=== PATIENT | female | born 1995 | race American Indian/Alaskan Native ===

== ENCOUNTER 2016-11-03 15:30 | Outpatient (CLI) | payer MEDICAID ==
[2016-11-03 15:57] VITALS: BP 117/68
[2016-11-03] MEDS ORDERED: LACTATED RINGERS 500 ML IV ONE (17:10)
[2016-11-03 17:44] LABS: Bilirubin,Urine NEG (Negative); Blood,Urine NEG (Negative); Ketones,Urine 80 mg/dL (Negative); Leukocyte Esterase,Urine MOD (Negative); Mucus,Urine 2+ /HPF; Nitrite,Urine NEG (Negative); Protein,Urine <15 mg/dL mg/dL (Negative); Urobilinogen,Urine < 2.0 mg/dL (<2.0)
== END 2016-11-03 18:39 | disposition home or self-care (01) ==
LOC: TRG 15:30
PROVIDERS: ATTEND Obstetrics & Gynecology
DX: Z34.92 Encounter for supervision of normal pregnancy, unspecified, second trimester (principal); Z3A.24 24 weeks gestation of pregnancy
CPT/HCPCS: 59025; 81001

== ENCOUNTER 2017-02-22 09:58 | Inpatient (IN) | payer MEDICAID ==
--- NOTE | 2017-02-21 13:59 | History and Physical Report ---
History of Present Illness Date of examination: 02/21/17 Date of admission: 02/22/17 Chief complaint: with SIUP at 39 weeks and 1 day not in labor.\ Previous C/section Declined History of present illness: The patient is a 21-year-old female [id number]: EDC 02/28/17 who is at 39 weeks and 1 day gestation confirmed by a second trimester ultrasound, admitted for elective repeat section. The patient was a late registrant to care at 25 weeks. She denies any contractions, fluid leakage, or bleeding. She reports good movement. Past medical history: Asthma. Past surgical history: section 1 Allergies: no known drug allergies Family history: Type 2 diabetes, Hypertension, Sleep apnea. Medications: vitamins Social history: no smoking or alcohol abuse. JOURNEYMAN GLAZIER history: unremarkable. Obstetric history: 10/2013- for breech, full term, male, 9 lbs. 5 oz. No complications. chart review: Type and screen: A positive, RPR: NR, Rubella: immune. Hepatitis B surface antigen negative, GBS positive. Physical exam: General: no active distress. Vital signs stable. Neck HEENT: normal. Chest clear to auscultation B/L. Neuro: AAO x 3 Abdomen: is soft nontender. Uterus gravid. Fundal height 39 cm. FHT 140 BPM. No decelerations. Vaginal exam: cervix closed/long/posterior. Extremities: no edema, tenderness, no Homans sign. Pre-op labs: pending. Assessment 1. 21 years old at 39 weeks and 1 day gestation not in labor. 2. previous section. 3. Refused . Plans 1. Admit to labor and delivery for repeat section. Risks, benefits, and alternatives of the procedure were discussed in detail with the patient which included but not limited to the risks of infection, hemorrhage requiring blood transfusion, injury to the bowel, bladder, and blood vessels. The patient expressed understanding, her questions were answered, and she gave informed consent. 2. FHT and toco monitoring. Nothing by mouth, IV fluids. 3. Admitting labs sent. Patient is specimen accessioner to the OR. Past History Past Medical History: asthma Past Surgical History: section JOURNEYMAN GLAZIER History: abnormal PAP smear Social history: no significant social history - Obstetrical History Expected Date of Delivery: 02/28/17 Actual Gestation: 39 Week(s) 0 Day(s) : 2 Para: 1 Hx # Term Pregnancies: 1 Medications and Allergies Allergies Allergy/AdvReac Type Severity Reaction Status Date / Time ondansetron HCl Allergy Rash Unverified 11/03/16 15:31 [From Zofran (as hydrochloride)] Active Meds: Active Medications Cefazolin Sodium 2 gm/ Sodium (Chloride) 100 mls @ 200 mls/hr IV ONCE ONE PRN Reason: Protocol Stop: 02/21/17 14:10 Lactated Ringer's (Lactated Ringers) 1,000 mls @ 125 mls/hr IV DIRECT MOIZ Mineral Oil (Mineral Oil) 30 ml PO QHS PRN PRN Reason: Constipation - Physical Exam Cardiovascular: Normal S1, Normal S2, No murmurs Lungs: Positive: Clear to auscultation Vulva: both: normal Uterus: Positive: normal size, enlarged Adnexa: both: normal Results All other labs normal. Assessment and Plan - Patient Problems (1) with 39 completed weeks gestation Status: Acute Plan to address problem: Admit to Labor and Delivery (2) Previous delivery affecting , antepartum Status: Acute Plan to address problem: Counseling for repeat C/section. Risks, benefits were discussed with the patient. Informed consent obtained.
[~2017-02-22 09:58] MED LIST: ANCEF/STERILE WATER 2 GM/20 ML 2 GM/20 ML SYRINGE IV SCH; MINERAL OIL PO PRN
[2017-02-22] MEDS: LACTATED RINGERS 1,000 ML IV SCH ×3 (10:30→20:13)
--- NOTE | 2017-02-22 10:50 | Anesthesia Consultation ---
Anesthesia Consult and Med Hx Date of service: 02/22/17 - Airway Anesthetic Teeth Evaluation: Good ROM Head & Neck: Adequate Mental/Hyoid Distance: Adequate Mallampati Class: Class II Intubation Access Assessment: Probably Good - Pre-Operative Health Status ASA Pre-Surgery Classification: ASA3 Proposed Anesthetic Plan: Epidural, Spinal - Pulmonary Hx Asthma: Yes (last unsed inhaler 1 week ago) - Cardiovascular System Hx Hypertension: No - Central Nervous System Hx Seizures: No Hx Psychiatric Problems: No - Endocrine Hx Renal Disease: No Hx Hypothyroidism: No Hx Hyperthyroidism: No - Hematic Hx Anemia: No Hx Sickle Cell Disease: No - Other Systems Hx Alcohol Use: No
--- NOTE | 2017-02-22 10:51 | Anesthesia Day of Surgery ---
Anesthesia Day of Surgery - Day of Surgery Patient Examined: Yes Patient H&P Reviewed: Yes Patient is NPO: No (had 10oz of [facility])
[2017-02-22] MEDS ORDERED: TORADOL IV PRN (10:52)
[2017-02-22] MEDS ORDERED: NARCAN 0.4 MG/1 ML IV PRN ×2 (10:52→13:47)
[2017-02-22] MEDS ORDERED: DILAUDID IV PRN (10:52)
[2017-02-22] MEDS ORDERED: REGLAN IV NR (11:00)
[2017-02-22] MEDS ORDERED: SODIUM CHLORIDE FLUSH SYRINGE 10 ML IV SCH ×2 (11:00→14:00)
[2017-02-22 11:01] LABS: Basophils % (Auto) 0.4 % (0.0-1.8); Eosinophils % (Auto) 0.7 % (0.0-4.3); Hematocrit 35.7 % (30.3-42.9); Hemoglobin 11.9 gm/dl (10.1-14.3); Mean Corpuscular HGB Conc 33 % (30-34); Mean Corpuscular Hemoglobin 30 pg (28-32); Mean Corpuscular Volume 90 fl (79-97); Platelet Count 213 K/mm3 (140-440); Red Blood Count 3.98 M/mm3 (3.65-5.03); Red Cell Distribution Width 13.3 % (13.2-15.2); White Blood Count 9.1 K/mm3 (4.5-11.0)
[2017-02-22] MEDS ORDERED: PITOCin/NS 20 UNIT/1000ML DRIP 20,000 MILLIUNITS/1,000 ML BAG IV ONE (11:17)
[2017-02-22] MEDS ORDERED: PEPCID IV ONE (12:00)
[2017-02-22] MEDS ORDERED: MORPHINE ONE (12:14)
[2017-02-22] MEDS ORDERED: BICITRA PO ONE (12:15)
[2017-02-22] MEDS ORDERED: ANCEF/STERILE WATER 2 GM/20 ML IV ONE (12:18)
[2017-02-22] MEDS ORDERED: WATER FOR IRRIG STERILE IR ONE (12:30)
[2017-02-22] MEDS ORDERED: NACL 0.9% IR ONE (12:30)
[2017-02-22] MEDS ORDERED: DILAUDID ONE (13:27)
[2017-02-22] MEDS ORDERED: NACL 0.9% 1000 ML 1,000 ML ONE (13:32)
[2017-02-22] MEDS ORDERED: MORPHINE IV PRN (13:47)
[2017-02-22] MEDS ORDERED: TUCKS PAD TP PRN (13:47)
[2017-02-22] MEDS ORDERED: PHENERGAN PR PRN (13:47)
[2017-02-22] MEDS ORDERED: TYLENOL PR PRN (13:47)
[2017-02-22] MEDS ORDERED: LANSINOH TP PRN (13:47)
[2017-02-22] MEDS ORDERED: REGLAN IV PRN (13:51)
--- NOTE | 2017-02-22 13:53 | Procedure Note ---
OB Delivery Note - Section Postop diagnosis: same section procedure: repeat low transverse Disposition: PACU Complications: none
--- NOTE | 2017-02-22 13:54 | Operative Report ---
Operative Report Operative Report: Pre-Operative diagnosis: 1. SIUP at 39 weeks and 1 day not in labor . 2. Previous section. 3. Refused . Postoperative diagnosis: 1. Same as pre-op diagnosis. 2. Dense omental adhesions to the anterior abdominal wall and uterus. Procedure: Repeat LTCS Surgeon: Dr. Quispe. Art Specialist: none Anesthesia: spinal Complications: none IV fluid: RL 1600 mL Urine output: 300 mL EBL: 700 mL Intraoperative findings: 1. Dense adhesions of the omentum to the anterior uterine segment and abdominal wall. 2. Female infant found in an NANCY position, delivered at 1 PM, Apgars 8 at 1 minute 9 at 5 minutes, weight 7 lbs. 15 oz. Procedure details: The risks, benefits, and alternatives of the procedure were discussed in detail with the patient which included but not limited to the risks of infection, hemorrhage requiring blood transfusion, injury to bowel bladder and blood vessels. The patient expressed understanding, her questions were answered, and she gave informed consent. The patient was taken to the operating room with an IV fluid infusing Ringer's lactate. In the operating room, she was placed in a sitting position and given spinal anesthesia. She was then placed in the dorsal supine position with a leftward tilt. Beatty catheter was placed. Venodyne boots were placed. The abdomen was washed and she was prepared and draped in the usual sterile fashion. After confirming adequate spinal anesthesia, a Pfannenstiel skin incision was made in the lower abdomen using the scalpel at the level of the previous scar. This incision was carried down to the underlying fascia using the Bovie. The fascia was incised bilaterally in a curvilinear fashion using the Bovie. Two straight Kocker clamps were used to grasp the upper edge of the fascia from which the underlying rectus abdominis muscle was dissected off using the Bovie. A similar procedure was done with the lower edge of the fascia to dissect the underlying rectus abdominis muscle. The muscle was bluntly from the midline by pulling. There was dense adhesions of the omentum to the anterior abdominal wall and the anterior uterine segment. Lysis of adhesions was done. A quick survey of the anatomy revealed a gravid uterus, normal ovaries and Fallopian tubes bilaterally. A bladder flap was created. On Dion O retractor was placed at the incision. An incision was made in the lower uterine segment using the scalpel and extended bilaterally in a curvilinear fashion using bandage scissors. The amniotic sac was ruptured, there was copious amount of meconium-stained amniotic fluid. The infant was found in an NANCY position. The head was delivered atraumatically followed by the delivery of the shoulders and body atraumatically. The was a female delivered at 1 PM. The cord was clamped 2 and cut , the was handed off to waiting home health specialist. Apgars were 8 at 1 minutes and 9 at 5 minutes Cord blood was collected. The placenta was removed manually, it was complete with three-vessel cord. The uterine cavity was clean of clots and debris using dry lap sponges. The uterine incision was repaired in a running locked fashion using 0 Vicryl sutures. A second layer of imbrication was placed. The gutters were cleaned of clots and debris using using dry lap sponges. The rectus muscle also was reapproximated using interrupted sutures of 0 Vicryl. The fascia was closed in a running fashion using 0 Vicryl sutures. The counts of laps, sponges, and instruments were correct 2. The patient tolerated the procedure well. She was taken to the recovery room in a stable condition.
[2017-02-22] MEDS ORDERED: PITOCin/NS 20 UNIT/1000ML DRIP 20 UNITS/1,000 ML BAG IV SCH (14:00)
[2017-02-22] MEDS: BENADRYL IV PRN ×2 (15:55→20:15)
[2017-02-23 02:16] LABS: Hematocrit 30.1 % (30.3-42.9); Hemoglobin 10.3 gm/dl (10.1-14.3)
[2017-02-23] MEDS: MOTRIN PO PRN ×2 (05:54→17:53)
--- NOTE | 2017-02-23 10:57 | Progress Note ---
Subjective Date of service: 02/23/17 Interval history: 1st POD after Patient is in the bed, comfortable. Pain is well controlled with pain meds. Ambulated well. No residual neurological deficit. Pruritus is receding. No anesthesia complications Objective - Constitutional Vitals: Vital Signs - 12hr 02/23/17 02/23/17 02/23/17 00:40 05:17 08:25 Temperature 99.2 F 98.9 F 98.5 F Pulse Rate 90 99 H 80 Respiratory 20 20 20 Rate Blood Pressure 101/55 108/53 98/50 [Left] - Labs CBC & Chem 7: 02/23/17 01:47 Labs: Abnormal lab results 02/22/17 02/23/17 Range/Units 10:45 01:47 Hct 30.1 L (30.3-42.9) % Merrick % (Auto) 9.2 H (0.0-7.3) %
[2017-02-23] MEDS ORDERED: BENADRYL PO PRN (11:00)
[2017-02-23] MEDS: PERCOCET 5/325 PO PRN ×3 (11:21→21:56)
--- NOTE | 2017-02-23 11:40 | Progress Note ---
Assessment and Plan A: POD #1 Stable P: Follow routine PostOp Orders Subjective - Subjective Date of service: 02/23/17 Patient reports: appetite normal, voiding normally, pain well controlled, flatus , ambulating normally : doing well, bottle feeding Objective - Vital Signs Latest vital signs: Vital Signs Temp Pulse Resp BP BP Pulse Ox 02/23/17 08:25 98.5 F 80 20 98/50 02/23/17 05:17 98.9 F 99 H 20 108/53 02/23/17 00:40 99.2 F 90 20 101/55 02/22/17 20:40 98.1 F 79 20 100/61 02/22/17 16:00 98.4 F 71 18 108/70 02/22/17 15:05 117/54 02/22/17 15:00 119/51 02/22/17 14:55 74 12 109/60 99 02/22/17 14:50 65 13 115/60 98 02/22/17 14:45 69 13 114/58 98 02/22/17 14:40 90 14 132/67 99 02/22/17 14:35 68 14 117/58 99 02/22/17 14:30 74 14 118/59 99 02/22/17 14:25 71 14 127/58 97 02/22/17 14:20 73 14 120/60 96 02/22/17 14:15 88 12 122/60 99 02/22/17 14:10 95 H 17 116/78 99 02/22/17 14:06 79 16 113/56 98 02/22/17 14:00 99 02/22/17 13:59 99 02/22/17 13:57 97.8 F Intake and Output 02/22/17 02/23/17 02/23/17 22:59 06:59 14:59 Intake Total 1120 360 120 Output Total 100 800 Balance 1020 -440 120 Intake: IV 1000 Lactated Ringers 1,000 ml 1000 @ 125 mls/hr IV DIRECT MOIZ Rx#:[id number] Oral 120 120 120 Intake, Free Water 240 Output: Urine 100 800 Indwelling Catheter 100 800 Other: Total, Intake Amount 120 120 Total, Output Amount 100 800 # Voids Void 1 - Exam Breasts: Present: normal Cardiovascular: Present: Regular rate Lungs: Present: Clear to auscultation, Normal air movement Abdomen: Present: normal appearance, soft, normal bowel sounds Uterus: Present: normal, firm, fundal height below umbilicus Extremities: Present: normal Incision: Present: normal, dry, dressed - Labs Labs: Abnormal lab results 02/23/17 Range/Units 01:47 Hct 30.1 L (30.3-42.9) %
[2017-02-24] MEDS: MOTRIN PO PRN ×2 (01:01→09:14)
[2017-02-24] MEDS: PERCOCET 5/325 PO PRN ×2 (05:30→09:14)
[2017-02-24] MEDS ORDERED: DEPO-PROVERA (CONTRACEPTION) IM ONE ×2 (06:07→13:00)
--- NOTE | 2017-02-24 06:09 | Progress Note ---
Assessment and Plan A: POD #2 Stable P: Follow Routine PostOp Orders Depo Provera prior to discharge D/C Home today per patient request RTO in one week Subjective - Subjective Date of service: 02/24/17 Patient reports: appetite normal, voiding normally, pain well controlled, flatus , bowel movement, ambulating normally Stringer: doing well, bottle feeding Objective - Vital Signs Latest vital signs: Vital Signs Temp Pulse Resp BP BP 02/24/17 05:30 18 02/24/17 01:01 18 02/24/17 00:00 98 F 90 20 102/59 02/23/17 21:56 18 02/23/17 16:58 99.1 F 86 22 80/40 90/40 02/23/17 11:43 99.4 F 84 20 100/50 02/23/17 08:25 98.5 F 80 20 98/50 Intake and Output 02/23/17 02/23/17 02/24/17 14:59 22:59 06:59 Intake Total 360 600 240 Balance 360 600 240 Intake: Oral 360 240 Intake, Free Water 360 240 Other: Total, Intake Amount 240 Voiding Method Toilet # Voids 1 Indwelling Catheter 1 Void 2 1 - Exam Breasts: Present: normal Cardiovascular: Present: Regular rate Lungs: Present: Clear to auscultation, Normal air movement Abdomen: Present: normal appearance, soft, normal bowel sounds Uterus: Present: normal, firm, fundal height below umbilicus Extremities: Present: normal Incision: Present: normal, dry, intact
--- NOTE | 2017-02-24 06:11 | Discharge Summary ---
Providers - Providers Date of Admission: 02/22/17 09:58 Date of discharge: 02/24/17 Attending physician: BABITA ROMAN MD Primary care physician: BABITA ROMAN MD Hospitalization Reason for admission: section Delivery: Procedure: section Episiotomy: none Laceration: none Incision: normal, dry, intact Other procedures: none complications: none Discharge diagnosis: IUP at term delivered baby: female Condition at discharge: Good Disposition: DC-01 TO HOME OR SELFCARE Plan - Provider Discharge Summary Activity: routine, no sex for 6 weeks, no heavy lifting 4 weeks, no strenuous exercise Diet: routine Instructions: routine Additional instructions: [] Smoking cessation referral if applicable(refer to patient education folder for contact #) [] Refer to [facility] Booklet Call your doctor immediately for: * Fever > 100.5 * Heavy vaginal bleeding ( >1 pad per hour) * Severe persistent headache * Shortness of breath * Reddened, hot, painful area to leg or breast * Drainage or odor from incision. * Keep incision clean and dry at all times and follow doctor's instructions regarding bathing/showering - Follow up plan Follow up: BABITA ROMAN MD [Primary Care Provider] - 7 Days
[2017-02-24 13:37] VITALS: BP 110/72
== END 2017-02-24 12:45 | disposition home or self-care (01) | DRG 765 ==
LOC: APU 09:58 → OB 15:16
PROVIDERS: ADMIT Obstetrics & Gynecology; ATTEND Obstetrics & Gynecology
PROC: 10D00Z1 Extraction of Products of Conception, Low, Open Approach (ICD-10-PCS; principal; 2017-02-22)
PROC: 0DNU0ZZ Release Omentum, Open Approach (ICD-10-PCS; 2017-02-22)
PROC: 0DNW0ZZ Release Peritoneum, Open Approach (ICD-10-PCS; 2017-02-22)
DX: O34.211 Maternal care for low transverse scar from previous cesarean delivery (principal); Z68.41 Body mass index [BMI] 40.0-44.9, adult; E66.01 Morbid (severe) obesity due to excess calories; O99.214 Obesity complicating childbirth; O99.52 Diseases of the respiratory system complicating childbirth; J45.909 Unspecified asthma, uncomplicated; O99.824 Streptococcus B carrier state complicating childbirth; O99.89 Other specified diseases and conditions complicating pregnancy, childbirth and the puerperium; N73.6 Female pelvic peritoneal adhesions (postinfective); Z83.3 Family history of diabetes mellitus; Z82.49 Family history of ischemic heart disease and other diseases of the circulatory system; Z3A.39 39 weeks gestation of pregnancy; Z37.0 Single live birth
CPT/HCPCS: 36415; 85014; 85018; 85025; 86850; 86900; 86901; 99211; A6250; G0463; J0690; J1050; J1170; J1200; J1885; J2270; J2590; J2765; J7030; J7120

== ENCOUNTER 2017-04-05 19:53 | Inpatient (IN) | payer MEDICAID ==
[2017-04-05 20:41] LABS: Basophils % (Auto) 0.7 % (0.0-1.8); Hemoglobin 12.2 gm/dl (10.1-14.3); Mean Corpuscular HGB Conc 33 % (30-34); Mean Corpuscular Hemoglobin 28 pg (28-32); Mean Corpuscular Volume 85 fl (79-97); Platelet Count 256 K/mm3 (140-440); Red Blood Count 4.37 M/mm3 (3.65-5.03); Red Cell Distribution Width 14.9 % (13.2-15.2)
[2017-04-06 04:01] LABS: Bilirubin,Urine NEG (Negative); Blood,Urine LG (Negative); Ketones,Urine TR mg/dL (Negative); Leukocyte Esterase,Urine TR (Negative); Nitrite,Urine NEG (Negative); Urobilinogen,Urine < 2.0 mg/dL (<2.0)
[2017-04-06 04:44] LABS: RBC,Urine > 182.0 /HPF (0.0-6.0); WBC,Urine > 182.0 /HPF (0.0-6.0)
--- NOTE | 2017-04-06 05:38 | Ultrasound Report ---
FINAL REPORT EXAM: US TRANSVAGINAL HISTORY: delivery 6 weeks ago, continued vag bleeding TECHNIQUE: Routine transvaginal imaging was obtained of the pelvis. Doppler interrogation of the adnexa was obtained. FINDINGS: The uterus is enlarged measuring 11 cm x 5 cm x 6.7 cm. There is an echogenic deformity along the anterior wall of the uterus extending from the endometrium to the serosal surface related to the incision. Contiguous with this along the anterior serosal surface is a mixed echogenic structure measuring 2.9 cm x 2.5 cm x 3.5 cm. This is most likely a soft tissue hematoma. The endometrial thickness otherwise is 15.6 millimeters. There is echogenic foci within the endometrium in the fundus possibly representing retained products of conception. Free fluid is not seen. The left ovary is normal in size contour and echotexture measuring 3.1 cm x 2.4 cm x 3 cm. The right ovary measures 3 cm x 2.2 cm x 2.7 cm. Within the right ovary is a functional cyst measuring 2.1 cm in diameter. IMPRESSION: Deformity along the anterior wall of the uterus related to the Caesarean incision. Probable hematoma along the serosal surface contiguous with the incision measuring to 3.5 cm in diameter as described. Follow-up study recommended. Echogenic foci within the fundus of the endometrium possibly representing retained products of conception. 2.1 cm functional cyst in the right ovary. No evidence of free fluid.
--- NOTE | 2017-04-06 05:42 | Ultrasound Report ---
FINAL REPORT EXAM: US PELVIC COMPLETE HISTORY: delivery 6 weeks ago, continued vag bleeding TECHNIQUE: Transabdominal imaging was obtained of the pelvis. Doppler interrogation of the uterus and adnexa was obtained. FINDINGS: The uterus is enlarged and anteverted measuring 11 cm x 5 cm x 6.7 cm. There is a myometrial deformity extending from the endometrium to the serosal surface compatible with the incision deformity anteriorly. Along the serosal surface is a heterogeneous focus measuring 3.5 cm x 2.9 cm x 2.5 cm most likely representing localized hematoma. The endometrial thickness otherwise is 15.6 millimeters. There is increased echogenicity of the endometrium in the fundus suggesting the possibility of retained products of conception. Free fluid is not seen. The left ovary is normal size contour and echotexture measuring 3.1 cm x 2.4 cm x 3 cm. The right ovary measures 3 cm x 2.2 cm x 2.7 cm. Within the right ovary is a functional cyst measuring 2.1 cm in diameter. IMPRESSION: incision deformity along the anterior wall the uterus with probable localized hematoma along the serosal surface as described. Follow-up study recommended. Echogenic foci in the fundic portion of the endometrium suggesting retained products of conception. 2.1 cm functional cyst in the right ovary.
[2017-04-06] MEDS ORDERED: NACL 0.9% 1000 ML 1,000 ML IV ONE (10:17)
[2017-04-06] MEDS ORDERED: MORPHINE IV ONE ×2 (10:17→14:21)
[2017-04-06] MEDS ORDERED: REGLAN IV ONE ×2 (10:18→17:43)
[2017-04-06] MEDS ORDERED: ROCEPHIN/NS 1 GM/50 ML 1 GM/50 ML BAG IV ONE (10:18)
--- NOTE | 2017-04-06 10:24 | Emergency Department Report ---
HPI - General Chief Complaint: Vaginal Bleeding - HPI HPI: Room 8 The patient is a 21-year-old female presenting with a chief complaint of vaginal bleeding. The patient states she is status post 02/22/[address] Quispe. The patient states since delivery she has had daily vaginal bleeding which includes significant blood clots. The patient states for the past 4 days she's had pain, paresthesias and weakness of her right upper extremity and right lower extremity. Patient admits to a slight "tingling" "while urinating. Patient complains of bilateral back pain. Patient complains of diffuse abdominal pain for the past 4 days. Patient states she has a headache but denies dysarthria or dysphagia. Patient denies any preceding trauma. The patient states she is not breast-feeding Location: [See above] Duration: [See above] Quality: Sharp Severity: Moderate Modifying factors: [see above] Context: [see above] Mode of transportation: [not driving] ED Past Medical Hx - Past Medical History Hx Asthma: Yes - Surgical History Additional Surgical History: C/S x 2 - Family History Family history: no significant - Social History Smoking Status: Never Smoker Substance Use Type: None (denies illicit drug use) - Medications Home Medications: Home Medications Medication Instructions Recorded Confirmed Last Taken Type ALBUTEROL Inhaler [Proair] 2 puff IH QID PRN 04/06/17 04/06/17 Unknown History Ibuprofen [Ibuprofen Ib] 800 mg PO DAILY 04/06/17 04/06/17 04/05/17 History ED Review of Systems ROS: Stated complaint: VAGINAL BLEEDING Other details as noted in HPI Constitutional: denies: fever Gastrointestinal: abdominal pain Genitourinary: dysuria, abnormal menses Musculoskeletal: back pain, myalgia Skin: denies: rash Neurological: weakness, paresthesias Physical Exam - Physical Exam Vital Signs: Vital Signs 04/05/17 04/05/17 04/06/17 19:55 19:58 03:22 Temperature 98.4 F Pulse Rate 130 H 128 H 111 H Respiratory 20 18 13 Rate Blood Pressure 122/73 Blood Pressure 122/73 [Right] O2 Sat by Pulse 99 99 100 Oximetry 04/06/17 04/06/17 04/06/17 03:30 03:46 03:55 Temperature Pulse Rate 110 H 117 H Respiratory 17 20 20 Rate Blood Pressure 109/65 129/77 Blood Pressure [Right] O2 Sat by Pulse 100 98 Oximetry 04/06/17 04/06/17 04/06/17 04:01 04:04 04:15 Temperature 98.9 F Pulse Rate 111 H 115 H Respiratory 18 22 Rate Blood Pressure 102/55 129/77 Blood Pressure [Right] O2 Sat by Pulse 99 Oximetry Physical Exam: GENERAL: The patient is well-developed well-nourished female lying on stretcher not appearing to be in acute distress. [] HEENT: Normocephalic. Atraumatic. Extraocular motions are intact. Patient has moist mucous membranes. NECK: Supple. No meningitic signs are noted. Trachea midline CHEST/LUNGS: Clear to auscultation. There is no respiratory distress noted. HEART/CARDIOVASCULAR: Regular. There is no tachycardia. There is no gallop rub or murmur. ABDOMEN: Abdomen is soft, with diffuse discomfort to palpation. surgical site clean dry and intact. Patient has normal bowel sounds. There is no abdominal distention. SKIN: There is no rash. There is no diaphoresis. The patient has no focal neurologic deficits. The patient has normal speech. Cranial nerves II through XII grossly intact, no drift. Normal sensation throughout. Bath Mixer 5+/5 bilaterally. Patient able to dorsiflex bilateral feet 5+/5 but an alert move her right lower extremity the patient states she still lift it with her arms MUSCULOSKELETAL: There is no deformity. ED Course Vital Signs 04/05/17 04/05/17 04/06/17 19:55 19:58 03:22 Temperature 98.4 F Pulse Rate 130 H 128 H 111 H Respiratory 20 18 13 Rate Blood Pressure 122/73 Blood Pressure 122/73 [Right] O2 Sat by Pulse 99 99 100 Oximetry 04/06/17 04/06/17 04/06/17 03:30 03:46 03:55 Temperature Pulse Rate 110 H 117 H Respiratory 17 20 20 Rate Blood Pressure 109/65 129/77 Blood Pressure [Right] O2 Sat by Pulse 100 98 Oximetry 04/06/17 04/06/17 04/06/17 04:01 04:04 04:15 Temperature 98.9 F Pulse Rate 111 H 115 H Respiratory 18 22 Rate Blood Pressure 102/55 129/77 Blood Pressure [Right] O2 Sat by Pulse 99 Oximetry - Consultations Consultation #1: 04/06/17 10:[address] Quispe- will evaluate in the ED ED Medical Decision Making - Lab Data Result diagrams: 04/05/17 20:14 Laboratory Tests 04/05/17 04/05/17 04/05/17 20:14 20:14 20:14 WBC 13.0 H RBC 4.37 Hgb 12.2 Hct 37.0 MCV 85 MCH 28 MCHC 33 RDW 14.9 Plt Count 256 Lymph % (Auto) 18.4 [place] % (Auto) 12.6 H Eos % (Auto) 0.0 Baso % (Auto) 0.7 Lymph # 2.4 [place] # 1.6 H Eos # 0.0 Baso # 0.1 Seg Neutrophils % 68.3 Seg Neutrophils # 8.9 H HCG, Qual Negative HCG, Quant < 2 Urine Color Urine Turbidity Urine pH Ur Specific [place] Urine Protein Urine Glucose (UA) Urine Ketones Urine Blood Urine Nitrite Urine Bilirubin Urine Urobilinogen Ur Leukocyte Esterase Urine WBC (Auto) Urine RBC (Auto) Urine WBC Clumps Blood Type Antibody Screen 04/05/17 04/06/17 20:17 04:04 WBC RBC Hgb Hct MCV MCH MCHC RDW Plt Count Lymph % (Auto) [place] % (Auto) Eos % (Auto) Baso % (Auto) Lymph # [place] # Eos # Baso # Seg Neutrophils % Seg Neutrophils # HCG, Qual HCG, Quant Urine Color [place] Urine Turbidity Clear Urine pH 5.0 Ur Specific [place] 1.017 Urine Protein 100 mg/dl Urine Glucose (UA) Neg Urine Ketones Tr Urine Blood Lg Urine Nitrite Neg Urine Bilirubin Neg Urine Urobilinogen < 2.0 Ur Leukocyte Esterase Tr Urine WBC (Auto) > 182.0 H Urine RBC (Auto) > 182.0 Urine WBC Clumps 3+ Blood Type A POSITIVE Antibody Screen Negative - EKG Data -: EKG Interpreted by [place] EKG shows normal: sinus rhythm Rate: tachycardia (108) - EKG Data When compared to previous EKG there are: previous EKG unavailable Interpretation: other (no ischemic changes seen) - Radiology Data Radiology results: report reviewed (right lower extremity Doppler, CT head, pelvic ultrasound), image reviewed (CT head, pelvic ultrasound) TALAT BOYD Female : 1995 MedRec# [id number] 04/06/17 11:03 - Radiology Dept. Note by HAYLEY ELLIOTT [facility] Num: [id number] : 1995 Patient Age: 21 VASCULAR LAB.PRELIMINARY REPORT.RLE VENOUS DUPLEX DONE.NO EVIDENCE OF DVT/SVT IN VESSELS VISUALIZED. Initialized on 04/06/17 11:03 - END OF NOTE CT HEAD WITHOUT CONTRAST INDICATION: Right upper extremity and right lower extremity pain, weakness, paresthesia. COMPARISON: None similar. FINDINGS: Noncontrast head CT demonstrates normal ventricles and sulci without acute or recent infarct, hemorrhage, mass effect or midline shift. No abnormal extra-axial fluid collections. Posterior fossa structures and basilar cisterns appear within normal limits. Clear paranasal sinuses and mastoid air cells. Intact calvarium. Normal overlying scalp soft tissues. Tiny radiopaque dental material incidentally noted. CONCLUSION: No acute intracranial CT abnormality, as described. Thank you for the opportunity to participate in this patient's care. Transcribed By: RS Dictated By: LJ JOHNSON MD Electronically Authenticated By: LJ JOHNSON MD Signed Date/Time: 04/06/17 1117 DD/ 1113 TD/TT: 04/06/17 1117 FINAL REPORT EXAM: US TRANSVAGINAL HISTORY: delivery 6 weeks ago, continued vag bleeding TECHNIQUE: Routine transvaginal imaging was obtained of the pelvis. Doppler interrogation of the adnexa was obtained. FINDINGS: The uterus is enlarged measuring 11 cm x 5 cm x 6.7 cm. There is an echogenic deformity along the anterior wall of the uterus extending from the endometrium to the serosal surface related to the incision. Contiguous with this along the anterior serosal surface is a mixed echogenic structure measuring 2.9 cm x 2.5 cm x 3.5 cm. This is most likely a soft tissue hematoma. The endometrial thickness otherwise is 15.6 millimeters. There is echogenic foci within the endometrium in the fundus possibly representing retained products of conception. Free fluid is not seen. The left ovary is normal in size contour and echotexture measuring 3.1 cm x 2.4 cm x 3 cm. The right ovary measures 3 cm x 2.2 cm x 2.7 cm. Within the right ovary is a functional cyst measuring 2.1 cm in diameter. IMPRESSION: Deformity along the anterior wall of the uterus related to the Caesarean incision. Probable hematoma along the serosal surface contiguous with the incision measuring to 3.5 cm in diameter as described. Follow-up study recommended. Echogenic foci within the fundus of the endometrium possibly representing retained products of conception. 2.1 cm functional cyst in the right ovary. No evidence of free fluid. Transcribed By: RB Dictated By: VICENTE SPENCE MD Electronically Authenticated By: VICENTE SPENCE MD Signed Date/Time: 04/06/17133 DD/ 3 TD/TT: 04/06/17133 CT HEAD WITHOUT CONTRAST INDICATION: Right upper extremity and right lower extremity pain, weakness, paresthesia. COMPARISON: None similar. FINDINGS: Noncontrast head CT demonstrates normal ventricles and sulci without acute or recent infarct, hemorrhage, mass effect or midline shift. No abnormal extra-axial fluid collections. Posterior fossa structures and basilar cisterns appear within normal limits. Clear paranasal sinuses and mastoid air cells. Intact calvarium. Normal overlying scalp soft tissues. Tiny radiopaque dental material incidentally noted. CONCLUSION: No acute intracranial CT abnormality, as described. Thank you for the opportunity to participate in this patient's care. Transcribed By: RS Dictated By: LJ JOHNSON MD Electronically Authenticated By: LJ JOHNSON MD Signed Date/Time: 04/06/171116 DD/ 12 TD/TT: 04/06/171116 FINAL REPORT EXAM: US TRANSVAGINAL HISTORY: delivery 6 weeks ago, continued vag bleeding TECHNIQUE: Routine transvaginal imaging was obtained of the pelvis. Doppler interrogation of the adnexa was obtained. FINDINGS: The uterus is enlarged measuring 11 cm x 5 cm x 6.7 cm. There is an echogenic deformity along the anterior wall of the uterus extending from the endometrium to the serosal surface related to the incision. Contiguous with this along the anterior serosal surface is a mixed echogenic structure measuring 2.9 cm x 2.5 cm x 3.5 cm. This is most likely a soft tissue hematoma. The endometrial thickness otherwise is 15.6 millimeters. There is echogenic foci within the endometrium in the fundus possibly representing retained products of conception. Free fluid is not seen. The left ovary is normal in size contour and echotexture measuring 3.1 cm x 2.4 cm x 3 cm. The right ovary measures 3 cm x 2.2 cm x 2.7 cm. Within the right ovary is a functional cyst measuring 2.1 cm in diameter. IMPRESSION: Deformity along the anterior wall of the uterus related to the Caesarean incision. Probable hematoma along the serosal surface contiguous with the incision measuring to 3.5 cm in diameter as described. Follow-up study recommended. Echogenic foci within the fundus of the endometrium possibly representing retained products of conception. 2.1 cm functional cyst in the right ovary. No evidence of free fluid. Transcribed By: RB Dictated By: VICENTE SPENCE MD Electronically Authenticated By: VICENTE SPENCE MD Signed Date/Time: 04/06/17 0134 - Differential Diagnosis retained products of conception, CVA, DVT, sciatica, UTI Critical care attestation.: If time is entered above; I have spent that time in minutes in the direct care of this critically ill patient, excluding procedure time. ED Disposition Clinical Impression: UTI (urinary tract infection), Right sided weakness Disposition: 09 OP ADMIT IP TO THIS HOSP Is pt being admited?: Yes Does the pt Need Aspirin: Yes Condition: Fair Referrals: PRIMARY CARE, [Primary Care Provider] - 3-5 Days Time of Disposition: 15:24 (hospitalist paged)
--- NOTE | 2017-04-06 11:23 | Cat Scan Report ---
CT HEAD WITHOUT CONTRAST INDICATION: Right upper extremity and right lower extremity pain, weakness, paresthesia. COMPARISON: None similar. FINDINGS: Noncontrast head CT demonstrates normal ventricles and sulci without acute or recent infarct, hemorrhage, mass effect or midline shift. No abnormal extra-axial fluid collections. Posterior fossa structures and basilar cisterns appear within normal limits. Clear paranasal sinuses and mastoid air cells. Intact calvarium. Normal overlying scalp soft tissues. Tiny radiopaque dental material incidentally noted. CONCLUSION: No acute intracranial CT abnormality, as described. Thank you for the opportunity to participate in this patient's care.
[2017-04-06] MEDS ORDERED: cefTRIAXone 1 GM in NACL 0.9% 20 ML IV ONE (11:30)
[2017-04-06] MEDS ORDERED: METHERGINE IM ONE (15:09)
--- NOTE | 2017-04-06 15:23 | Consultation ---
History of Present Illness Consult date: 04/06/17 Requesting physician: JANNY ESPINOZA Reason for consult: menorrhagia History of present illness: Patient is a 21 year old who is S/P repeat LTCS on 02/22/17, who presented to the ER complaining of right-sided weakness in both arm and leg and pain in her arm for 4 days. While there, she also reported that she has been bleeding with darkisk blood and clots since her discharge from the hospital. She denies any headache, visual changes or RUQ pain, any dizziness or palpitation. Her H/H was 12/37 and BP 129/77. She had a pelvic sonogram which showed a focus in the endometrium measuring 15 mm. I found the patient lying in bed comfortably and communicating well. She said that besides the bleeding, her main concern is that she did not take any pain meds after she went home from the hospital. She was given a prescription for percocet but the pharmacy did not give it to her. In the ER, she was given morphine 4 times over the last few hours which she said did not help her. She wants to know if she will be given more pain meds and she said that percocet is the only medicine that helps her with the pain. PMHx: asthma PSHx: C/section x 2. Allergy: NKDA Social Hx: denies any habits. Past History Past Medical History: asthma Past Surgical History: section Family/Genetic History: none Social history: no significant social history - Obstetrical History : 2 Number of Living Children: 2 Medications and Allergies Allergies Allergy/AdvReac Type Severity Reaction Status Date / Time ondansetron HCl Allergy Rash Verified 04/05/17 19:54 [From Zofran (as hydrochloride)] Home Medications Medication Instructions Recorded Confirmed Last Taken Type No Known Home Medications [No 02/23/17 02/23/17 Unknown History Reported Home Medications] - Vital Signs Vital signs: Vital Signs Temp Pulse Resp BP Pulse Ox 98.4 F 130 H 20 122/73 99 04/05/17 19:55 04/05/17 19:55 04/05/17 19:55 04/05/17 19:55 04/05/17 19:55 Temp Pulse Resp BP Pulse Ox 98.9 F 115 H 27 H 129/77 99 04/06/17 04:04 04/06/17 04:15 04/06/17 11:30 04/06/17 04:15 04/06/17 04:01 - Physical Exam Cardiovascular: Normal S1, Normal S2 Lungs: Positive: Clear to auscultation Abdomen: Positive: other (Incision well healed.) Vulva: both: normal Vagina: Positive: other (mild darkish clot in the vault, no lesion.) Cervix: Positive: other (Closed, no CMT.) Uterus: Positive: other ([place] enlarged to 10-12 weeks size. Mild TN anteriorly at incision area.) Adnexa: both: normal Deep Tendon Reflex Grade: Normal +2 Results Result Diagrams: 04/05/17 20:14 Abnormal lab results 04/05/17 04/06/17 Range/Units 20:14 04:04 WBC 13.0 H (4.5-11.0) K/mm3 [place] % (Auto) 12.6 H (0.0-7.3) % [place] # 1.6 H (0.0-0.8) K/mm3 Seg Neutrophils # 8.9 H (1.8-7.7) K/mm3 Urine WBC (Auto) > 182.0 H (0.0-6.0) /HPF All other labs normal. Ultrasound: pending (Small echogenic focus in the endometrium emasuring 15 mm, a small hemotoma in the area of the uterine incision. ), report reviewed, image reviewed, other Assessment and Plan - Patient Problems (1) Subinvolution of uterus Current Visit: Yes Status: Acute Plan to address problem: I told the patient that the uterus is mildly enlarged and the endometrium is mildly thick which can be seen up to 8 weeks post C/section. Differential diagnosis includes uterine subinvolution or retained POC. Will give her methergine 0.2 mg IM x 1 dose, followed by 1 dose PO every 4 hours for 4 doses. If the bleeding does not subside after this treatment, will revaluate for D&C for possible retained POC. At this time, she is hemodynamically stable. Patient is being managed by hospitalist for her neurological symptoms. Please reconsult with clinical academic allergist if any new concern arises. I told the patient to come to the office in 2 days. (2) Hematoma following procedure Current Visit: Yes Status: Acute Plan to address problem: The hematoma is contained at the incision area and it is a common finding after C/section. No intervention is required at this time. May need to monitor its size with F/U sonogram in 1-2 weeks. (3) Neurological complaint Current Visit: Yes Status: Acute Plan to address problem: Patient is being managed by hospitalist team.
[2017-04-06] MEDS ORDERED: ASPIRIN PO ONE (16:12)
[2017-04-06] MEDS ORDERED: TYLENOL PO PRN (16:33)
[2017-04-06] MEDS ORDERED: PHENERGAN PR PRN (16:34)
[2017-04-06] MEDS ORDERED: MORPHINE ONE (17:38)
[2017-04-06] MEDS ORDERED: REGLAN ONE (17:39)
[2017-04-06] MEDS: MORPHINE IV PRN (17:41)
--- NOTE | 2017-04-06 22:01 | History and Physical Report ---
CHIEF COMPLAINT: Weakness of the right upper and lower extremities, other complaint includes a neck pain. HISTORY OF PRESENT ILLNESS: The patient is a 21-year-old female who is about 6 weeks presenting to the Emergency Room with a 4-day history of neck pain, weakness of the right upper and lower extremities and paresthesia of the right side of the body. There is no history of trauma, no history of fever or chills, and also the patient has been having vaginal bleeding going on and occurring in clots. There is history of headache, but no history of speech impairment or difficulty swallowing. The patient complained of loss of feelings in the right thigh. There is no history of chest pain, no history of shortness of breath, and no history of fever. The patient was seen in the Emergency Room where she had the cylinder block mechanic come down to see her and consulted on her case of vaginal bleed. PAST MEDICAL HISTORY: Pertinent for asthma. PAST SURGICAL HISTORY: Pertinent for C-sections x 2. FAMILY HISTORY: Family history is noncontributory. SOCIAL HISTORY: The patient does not smoke, does not drink alcohol, and does not use illicit drugs. MEDICATIONS: The patient is on albuterol inhaler 2 puffs 4 times a day and also on ibuprofen 800 mg daily. ALLERGIES: The patient is allergic to ZOFRAN. REVIEW OF SYSTEMS: CONSTITUTIONAL: There is no fever, no chills, no diaphoresis. HEENT: There is headache, but no sore throat. CARDIOVASCULAR: There is no chest pain or orthopnea. RESPIRATORY: There is no shortness of breath or cough. GASTROINTESTINAL: There is no nausea, no vomiting, no abdominal pain, diarrhea or constipation. NEUROLOGIC:. There is weakness of the right upper and lower limbs with paresthesia of the right side of the body and loss of muscles sensory feeling in the right thigh. There is no change in mental status. MUSCULOSKELETAL: There is neck pain. No joint swelling. DERMATOLOGICAL: There is no skin rash or itching. GENITOURINARY: There is vaginal bleeding. No flank pain. No dysuria. Rest of system review is normal. PHYSICAL EXAMINATION: GENERAL: At the time of exam, the patient was found to be alert, oriented x 3 and not acute distress. VITAL SIGNS: Shows temperature of 98.9 degree Fahrenheit, pulse of 111, respirations of 18, blood pressure of 102/55, and O2 sat of 99% on room air. HEENT: Shows pupils to be equal, round, and reactive to light and accommodating. Extraocular muscles are intact. NECK: Supple with no JVD or carotid bruit, but there is tenderness at the back of the neck. CARDIOVASCULAR: Shows first and second heart sounds to be normal with no gallops or rubs. RESPIRATORY: Shows good air entry on both sides of the lung with no abnormal breath sounds. GASTROINTESTINAL: Shows abdomen to be full, soft, nontender with no organomegaly or rigidity. NEUROLOGIC: Neuro exam shows weakness of the right lower limb showing muscles strength of grade 1/6, whereas the left lower limb showing muscle strength of grade 6/6. The right upper limb shows muscle strength of grade 4/6, where the left upper limb shows muscle strength of grade 6/6. There is loss of sensory functions in the right thigh with normal sensory function in the right leg area. MUSCULOSKELETAL: Shows no joint swelling or tenderness. DERMATOLOGICAL: Shows no skin rash. GENITOURINARY: Showing no costovertebral angle tenderness. PERTINENT LABORATORY AND IMAGING STUDIES: The patient has CBC done with elevated white count of 13,000, normal hemoglobin, normal hematocrit with CBC differential showing elevated monocyte count of 12.6 and high segmented neutrophil of 8.9. The patient's urinalysis show high urine WBC of greater than 182 with trace urine leukocyte and trace urine ketones, and negative urine nitrifies. IMAGING STUDIES: The patient had a CT of the head done that shows no acute intracranial abnormality. Also, the patient had Duplex ultrasound of the lower extremity with no report of any abnormality. The patient had a pelvic ultrasound as well as transvaginal ultrasound done by the processing assistant and these showed some cysts in the right ovary with evidence of some retained product of conception. DIAGNOSES: 1. Right upper and right lower limb weakness and paresthesia. 2. Vaginal bleeding. PLAN: The patient will be admitted to medical floor and we will have MRI of the brain without contrast done today or tomorrow, so the patient will have MRA/ MRI of the neck without contrast done today or tomorrow and bilateral carotid ultrasound of the neck done today or tomorrow. The patient will have physical therapy consult to evaluate and treat for weakness of the right upper and right lower limb. The patient will be on aspirin 325 mg by mouth daily as well as Tylenol 650 mg by mouth every 4 hours for fever and headache and will be on IV morphine 2 mg every 3 hours as needed for pain as well as Phenergan 25 mg by rectum every 6 hours for nausea and vomiting. The patient will be on IV normal saline at 100 mL an hour. Management of the patient's vaginal bleeding is already being taken of by the cylinder block mechanic on consult. The patient will be started on IV Rocephin 1 gram daily for urinary tract infection. JOB# [id number] OCN/NTS MTDD
[2017-04-07] MEDS ORDERED: ROCEPHIN/NS 1 GM/50 ML 1 GM/50 ML BAG IV SCH (10:00)
[2017-04-07] MEDS: cefTRIAXone 1 GM in NACL 0.9% 20 ML IV SCH (12:20)
--- NOTE | 2017-04-07 12:53 | Magnetic Resonance Report ---
MRI OF THE BRAIN WITHOUT CONTRAST: HISTORY: Right sided weakness PROCEDURE: Multiplanar, multisequence MR imaging of the brain without IV contrast was performed. FINDINGS: Correlation is made with the CT head performed 04/06/17. 3 foci of diffusion restriction are identified in the posterior corpus callosum. There is a 1.2 cm area of diffusion restriction in the splenium of the corpus callosum near midline. There are 2 smaller linear areas of diffusion restriction to the right of midline and to the left of midline in the splenium of the corpus callosum as well. There is decreased signal on the ADC map in these areas and slightly increased signal on the T2-weighted images. These finding suggest small ischemic infarcts although the location of these are slightly atypical. A demyelinating process could also be considered. There is no evidence for hemorrhage. No mass is identified although no IV contrast was administered. Minimal nonspecific T2 signal abnormalities are noted in both frontal lobes. Otherwise, the remaining brain parenchyma demonstrates normal signal throughout. The midline structures are central. The basal cisterns are patent. Normal ventricular size. The orbital cavities and sella turcica demonstrate no abnormality. The visualized paranasal sinuses and mastoid air cells are well aerated. IMPRESSION: 3 small areas of diffusion restriction are identified in the splenium of the corpus callosum as outlined above. MR characteristics are most consistent with ischemic infarcts. Demyelination could also be considered. Consider consultation with neurology.
--- NOTE | 2017-04-07 12:54 | Magnetic Resonance Report ---
MRA NECK WITHOUT CONTRAST HISTORY: Right sided weakness, neck pain. TECHNIQUE: [id number] imaging with MIP reformations of the carotid arterial system is submitted. FINDINGS: The bilateral carotid and vertebral systems appear widely patent free of hemodynamically significant stenosis, aneurysm or dissection. There is less than 20% stenosis bilaterally. IMPRESSION: Normal MR angiography of the neck.
[2017-04-07] MEDS ORDERED: SODIUM CHLORIDE FLUSH SYRINGE 10 ML IV PRN (14:53)
[2017-04-07] MEDS ORDERED: NORMODYNE IV PRN (14:53)
[2017-04-07 15:22] LABS: Basophils % (Auto) 0.7 % (0.0-1.8); Eosinophils % (Auto) 0.8 % (0.0-4.3); Hematocrit 31.3 % (30.3-42.9); Mean Corpuscular HGB Conc 32 % (30-34); Mean Corpuscular Hemoglobin 27 pg (28-32); Mean Corpuscular Volume 85 fl (79-97); Platelet Count 235 K/mm3 (140-440); Red Blood Count 3.69 M/mm3 (3.65-5.03); Red Cell Distribution Width 14.8 % (13.2-15.2); White Blood Count 6.8 K/mm3 (4.5-11.0)
--- NOTE | 2017-04-07 16:14 | Progress Note ---
Assessment and Plan Assessment and plan: Subinvolution of uterus LEGISLATIVE CORRESPONDENT input appreciated, "uterus is mildly enlarged and the endometrium is mildly thick which can be seen up to 8 weeks post C/section. Differential diagnosis includes uterine subinvolution or retained POC. Will give her methergine 0.2 mg IM x 1 dose, followed by 1 dose PO every 4 hours for 4 doses. "Verdaann 4d I have ordered 4 doses of methergin as recommended by LEGISLATIVE CORRESPONDENT Case discussed with LEGISLATIVE CORRESPONDENT physician Hematoma along incision site marketing information coordinator input appreciated "The hematoma is contained at the incision area and it is a common finding after C/section. No intervention is required at this time. May need to monitor its size with F/U sonogram in 1-2 weeks." Acute Ischemic CVA mri confirms CVA, carotid doppler and MRA negative awaiting echo -awaiting neurology consult -added aspirin, check lipid panel History Interval history: She still complaining of heavy vaginal bleeding along with pelvic pain and abdominal pain. Review of systems Constitutional: No fevers, no malaise, no joint pains CVS: No chest pain, no orthopnea, no dyspnea on exertion, no pedal edema GI: ,no diarrhea, no vomiting, no constipation Respiratory: No shortness of breath, no wheezing, no coughing Neurology: She had right-sided weakness previously was transient and now resolved completely. Hospitalist Physical - Physical exam Narrative exam: General.: Appears well, no distress, nontoxic HEENT: Moist mucous membranes, extraocular muscles intact, no lymphadenopathy Neck: supple Cardiac: S1-S2 heard Lungs: clear to auscultation bilaterally Abdomen: soft , pelvic tenderness, bowel sound positive Extremities: no edema clubbing or cyanosis Skin: no rash or lesions Neurologic: no gross focal deficits Psych: appropriate behavior, appropriate mood, corporative, judgment intact - Constitutional Vitals: Temp Pulse Resp BP Pulse Ox 99.3 F 90 20 97/53 98 04/07/17 07:33 04/07/17 07:33 04/07/17 07:33 04/07/17 07:33 04/07/17 07:33 Results - Labs CBC & Chem 7: 04/08/17 12:24 Labs: Laboratory Last Values WBC 6.8 K/mm3 (4.5-11.0) 04/07/17 14:53 RBC 3.69 M/mm3 (3.65-5.03) 04/07/17 14:53 Hgb 10.0 gm/dl (10.1-14.3) L 04/07/17 14:53 Hct 31.3 % (30.3-42.9) 04/07/17 14:53 MCV 85 fl (79-97) 04/07/17 14:53 MCH 27 pg (28-32) L 04/07/17 14:53 MCHC 32 % (30-34) 04/07/17 14:53 RDW 14.8 % (13.2-15.2) 04/07/17 14:53 Plt Count 235 K/mm3 (140-440) 04/07/17 14:53 Lymph % (Auto) 28.9 % (13.4-35.0) 04/07/17 14:53 [place] % (Auto) 13.7 % (0.0-7.3) H 04/07/17 14:53 Eos % (Auto) 0.8 % (0.0-4.3) 04/07/17 14:53 Baso % (Auto) 0.7 % (0.0-1.8) 04/07/17 14:53 Lymph # 2.0 K/mm3 (1.2-5.4) 04/07/17 14:53 [place] # 0.9 K/mm3 (0.0-0.8) H 04/07/17 14:53 Eos # 0.1 K/mm3 (0.0-0.4) 04/07/17 14:53 Baso # 0.0 K/mm3 (0.0-0.1) 04/07/17 14:53 Seg Neutrophils % 55.9 % (40.0-70.0) 04/07/17 14:53 Seg Neutrophils # 3.8 K/mm3 (1.8-7.7) 04/07/17 14:53 HCG, Qual Negative (Negative) 04/05/17 20:14 HCG, Quant < 2 mIU/mL (0-4) 04/05/17 20:14 Urine Color [place] (Yellow) 04/06/17 04:04 Urine Turbidity Clear (Clear) 04/06/17 04:04 Urine pH 5.0 (5.0-7.0) 04/06/17 04:04 Ur Specific [place] 1.017 (1.003-1.030) 04/06/17 04:04 Urine Protein 100 mg/dl mg/dL (Negative) 04/06/17 04:04 Urine Glucose (UA) Neg mg/dL (Negative) 04/06/17 04:04 Urine Ketones Tr mg/dL (Negative) 04/06/17 04:04 Urine Blood Lg (Negative) 04/06/17 04:04 Urine Nitrite Neg (Negative) 04/06/17 04:04 Urine Bilirubin Neg (Negative) 04/06/17 04:04 Urine Urobilinogen < 2.0 mg/dL (<2.0) 04/06/17 04:04 Ur Leukocyte Esterase Tr (Negative) 04/06/17 04:04 Urine WBC (Auto) > 182.0 /HPF (0.0-6.0) H 04/06/17 04:04 Urine RBC (Auto) > 182.0 /HPF (0.0-6.0) 04/06/17 04:04 Urine WBC Clumps 3+ /HPF 04/06/17 04:04 Blood Type A POSITIVE 04/05/17 20:17 Antibody Screen Negative 04/05/17 20:17
[2017-04-07] MEDS: METHERGINE PO SCH ×2 (16:51→20:24)
[2017-04-07] MEDS: ASPIRIN PO SCH (16:59)
[2017-04-08] MEDS: METHERGINE PO SCH ×2 (00:24→04:20)
[2017-04-08] MEDS: MORPHINE IV PRN ×3 (00:54→08:41)
[2017-04-08] MEDS ORDERED: MORPHINE IV PRN (09:05)
[2017-04-08] MEDS: ASPIRIN PO SCH (10:29)
[2017-04-08] MEDS: cefTRIAXone 1 GM in NACL 0.9% 20 ML IV SCH (10:32)
[2017-04-08 12:40] LABS: Hematocrit 34.3 % (30.3-42.9); Hemoglobin 11.2 gm/dl (10.1-14.3)
[2017-04-08] MEDS ORDERED: Fluarix Quad 2017-2018(36 MOS+ IM ONE (12:53)
[2017-04-08] MEDS ORDERED: COMPAZINE IV PRN (13:28)
[2017-04-08] MEDS ORDERED: REGLAN IV PRN (13:28)
--- NOTE | 2017-04-08 13:55 | Consultation ---
History of Present Illness Consult date: 04/08/17 History of present illness: went over the CT which is normal and the MRI shows very small lesion in deep white matter she is post two c section and has UTI plan spine x ray the MRA is normal Past History Social history: no significant social history Medications and Allergies Allergies Allergy/AdvReac Type Severity Reaction Status Date / Time ondansetron HCl Allergy Rash Verified 04/05/17 19:54 [From Zofran (as hydrochloride)] Home Medications Medication Instructions Recorded Confirmed Last Taken Type ALBUTEROL Inhaler [Proair] 2 puff IH QID PRN 04/06/17 04/06/17 Unknown History Ibuprofen [Ibuprofen Ib] 800 mg PO DAILY 04/06/17 04/06/17 04/05/17 History Active Meds: Active Medications Acetaminophen (Tylenol) 650 mg PO Q4H PRN PRN Reason: Pain, Mild (1-3),DANIELS, FEVER>101 Last Admin: 04/08/17 03:10 Dose: 650 mg Aspirin (Aspirin) 325 mg PO QDAY [facility] Last Admin: 04/08/17 10:29 Dose: 325 mg Hydromorphone HCl (Dilaudid) 1 mg IV Q2H PRN PRN Reason: Pain , Severe (7-10) Ceftriaxone Sodium 1 gm/ (Sodium Chloride) 20 mls @ 20 mls/10 min IV Q24H [facility] Last Admin: 04/08/17 10:32 Dose: 20 mls/10 min Labetalol HCl (Normodyne) 10 mg IV Q4H PRN PRN Reason: BP > 180/115 Metoclopramide HCl (Reglan) 10 mg IV Q6H PRN PRN Reason: Nausea And Vomiting Prochlorperazine Edisylate (Compazine) 10 mg IV Q4H PRN PRN Reason: Nausea And Vomiting Promethazine HCl (Phenergan) 25 mg [place] Q6H PRN PRN Reason: Nausea And Vomiting Last Admin: 04/08/17 03:19 Dose: 25 mg Sodium Chloride (Sodium Chloride Flush Syringe 10 Ml) 10 ml IV PRN PRN PRN Reason: LINE FLUSH Physical Examination - Vital Signs Vital Signs: Vital Signs Temp Pulse Resp BP Pulse Ox 98.4 F 130 H 20 122/73 99 04/05/17 19:55 04/05/17 19:55 04/05/17 19:55 04/05/17 19:55 04/05/17 19:55 Results - Laboratory Findings CBC and BMP: 04/08/17 12:24 Abnormal Lab Findings: Abnormal Labs 04/05/17 04/06/17 04/07/17 20:14 04:04 14:53 WBC 13.0 H Hgb 10.0 L MCH 27 L [place] % (Auto) 12.6 H 13.7 H [place] # 1.6 H 0.9 H Seg Neutrophils # 8.9 H HDL Cholesterol Urine WBC (Auto) > 182.0 H 04/08/17 07:48 WBC Hgb MCH [place] % (Auto) [place] # Seg Neutrophils # HDL Cholesterol 15 L Urine WBC (Auto)
--- NOTE | 2017-04-08 14:26 | Consultation ---
History of Present Illness Consult date: 04/08/17 Reason for consult: other (back pain) Past History Past Medical History: asthma Past Surgical History: section Family/Genetic History: none - Obstetrical History : 2 Medications and Allergies Allergies Allergy/AdvReac Type Severity Reaction Status Date / Time ondansetron HCl Allergy Rash Verified 04/05/17 19:54 [From Zofran (as hydrochloride)] Home Medications Medication Instructions Recorded Confirmed Last Taken Type ALBUTEROL Inhaler [Proair] 2 puff IH QID PRN 04/06/17 04/06/17 Unknown History Ibuprofen [Ibuprofen Ib] 800 mg PO DAILY 04/06/17 04/06/17 04/05/17 History Active Meds: Active Medications Acetaminophen (Tylenol) 650 mg PO Q4H PRN PRN Reason: Pain, Mild (1-3),DANIELS, FEVER>101 Last Admin: 04/08/17 03:10 Dose: 650 mg Aspirin (Aspirin) 325 mg PO QDAY [facility] Last Admin: 04/08/17 10:29 Dose: 325 mg Hydromorphone HCl (Dilaudid) 1 mg IV Q2H PRN PRN Reason: Pain , Severe (7-10) Ceftriaxone Sodium 1 gm/ (Sodium Chloride) 20 mls @ 20 mls/10 min IV Q24H [facility] Last Admin: 04/08/17 10:32 Dose: 20 mls/10 min Labetalol HCl (Normodyne) 10 mg IV Q4H PRN PRN Reason: BP > 180/115 Metoclopramide HCl (Reglan) 10 mg IV Q6H PRN PRN Reason: Nausea And Vomiting Prochlorperazine Edisylate (Compazine) 10 mg IV Q4H PRN PRN Reason: Nausea And Vomiting Promethazine HCl (Phenergan) 25 mg HI Q6H PRN PRN Reason: Nausea And Vomiting Last Admin: 04/08/17 03:19 Dose: 25 mg Sodium Chloride (Sodium Chloride Flush Syringe 10 Ml) 10 ml IV PRN PRN PRN Reason: LINE FLUSH - Vital Signs Vital signs: Vital Signs Temp Pulse Resp BP Pulse Ox 98.4 F 130 H 20 122/73 99 04/05/17 19:55 04/05/17 19:55 04/05/17 19:55 04/05/17 19:55 04/05/17 19:55 Temp Pulse Resp BP Pulse Ox 97.6 F 66 20 105/58 100 04/08/17 08:40 04/08/17 08:40 04/08/17 13:19 04/08/17 08:40 04/08/17 08:40 - Physical Exam Cardiovascular: Normal S1, Normal S2 Lungs: Positive: Clear to auscultation Abdomen: Positive: other (Incision well healed) Vulva: both: normal Adnexa: both: normal Results Result Diagrams: 04/08/17 12:24 Abnormal lab results 04/07/17 04/08/17 Range/Units 14:53 07:48 Hgb 10.0 L (10.1-14.3) gm/dl MCH 27 L (28-32) pg [place] % (Auto) 13.7 H (0.0-7.3) % [place] # 0.9 H (0.0-0.8) K/mm3 HDL Cholesterol 15 L (40-59) mg/dL All other labs normal. Assessment and Plan - Patient Problems (1) Subinvolution of uterus Current Visit: Yes Status: Acute Plan to address problem: Patient was treated with methergine. (2) Hematoma following procedure Current Visit: Yes Status: Acute Plan to address problem: On admission, a small hematoma was found and it was contained at the incision area. As that is a common finding after C/section, patient was told that no intervention was needed. Today, she says that she is still having mild bleeding with dark blood. F/U pelvic sonogram was ordered. It is not done yet. H/H has been stable. (3) Neurological complaint Current Visit: Yes Status: Acute Plan to address problem: Patient is being managed by hospitalist team. (4) Anemia Current Visit: Yes Status: Acute Qualifiers: Anemia type: iron deficiency
[2017-04-08] MEDS: DILAUDID IV PRN (17:56)
--- NOTE | 2017-04-08 20:13 | Progress Note ---
Assessment and Plan Assessment and plan: Subinvolution of uterus HVAC/R SERVICE TECHNICIAN input appreciated, "uterus is mildly enlarged and the endometrium is mildly thick which can be seen up to 8 weeks post C/section. Differential diagnosis includes uterine subinvolution or retained POC. Will give her methergine 0.2 mg IM x 1 dose, followed by 1 dose PO every 4 hours for 4 doses. "Rica 4d has completed methergin However vaginal bleeding, pelvic pain and back pain have worsened. We will repeat transvaginal ultrasound and pelvic ultrasound today Case discussed with HVAC/R SERVICE TECHNICIAN physician Hematoma along incision site makeup artist input appreciated "The hematoma is contained at the incision area and it is a common finding after C/section. No intervention is required at this time. May need to monitor its size with F/U sonogram in 1-2 weeks." Acute Ischemic CVA mri confirms CVA, carotid doppler and MRA negative Echocardiogram is negative for structural abnormality -added aspirin, lipid panel reviewed, add statin History Interval history: She still complaining of heavy vaginal bleeding along with pelvic pain and abdominal pain. She states that bleeding and pain are worse today Review of systems Constitutional: No fevers, no malaise, no joint pains CVS: No chest pain, no orthopnea, no dyspnea on exertion, no pedal edema GI: ,no diarrhea, no vomiting, no constipation Respiratory: No shortness of breath, no wheezing, no coughing Neurology: She had right-sided weakness previously was transient and now resolved completely. Hospitalist Physical - Physical exam Narrative exam: General.: Appears well, no distress, nontoxic HEENT: Moist mucous membranes, extraocular muscles intact, no lymphadenopathy Neck: supple Cardiac: S1-S2 heard Lungs: clear to auscultation bilaterally Abdomen: soft , pelvic tenderness, bowel sound positive Extremities: no edema clubbing or cyanosis Skin: no rash or lesions Neurologic: no gross focal deficits Psych: appropriate behavior, appropriate mood, corporative, judgment intact - Constitutional Vitals: Temp Pulse Resp BP Pulse Ox 97.7 F 62 18 118/74 98 04/08/17 16:31 04/08/17 16:31 04/08/17 17:56 04/08/17 16:31 04/08/17 16:31 Results - Labs CBC & Chem 7: 04/08/17 12:24 Labs: Laboratory Last Values WBC 6.8 K/mm3 (4.5-11.0) 04/07/17 14:53 RBC 3.69 M/mm3 (3.65-5.03) 04/07/17 14:53 Hgb 11.2 gm/dl (10.1-14.3) 04/08/17 12:24 Hct 34.3 % (30.3-42.9) 04/08/17 12:24 MCV 85 fl (79-97) 04/07/17 14:53 MCH 27 pg (28-32) L 04/07/17 14:53 MCHC 32 % (30-34) 04/07/17 14:53 RDW 14.8 % (13.2-15.2) 04/07/17 14:53 Plt Count 235 K/mm3 (140-440) 04/07/17 14:53 Lymph % (Auto) 28.9 % (13.4-35.0) 04/07/17 14:53 [place] % (Auto) 13.7 % (0.0-7.3) H 04/07/17 14:53 Eos % (Auto) 0.8 % (0.0-4.3) 04/07/17 14:53 Baso % (Auto) 0.7 % (0.0-1.8) 04/07/17 14:53 Lymph # 2.0 K/mm3 (1.2-5.4) 04/07/17 14:53 [place] # 0.9 K/mm3 (0.0-0.8) H 04/07/17 14:53 Eos # 0.1 K/mm3 (0.0-0.4) 04/07/17 14:53 Baso # 0.0 K/mm3 (0.0-0.1) 04/07/17 14:53 Seg Neutrophils % 55.9 % (40.0-70.0) 04/07/17 14:53 Seg Neutrophils # 3.8 K/mm3 (1.8-7.7) 04/07/17 14:53 Triglycerides 115 mg/dL (2-149) 04/08/17 07:48 Cholesterol 136 mg/dL (50-199) 04/08/17 07:48 LDL Cholesterol Direct 98 mg/dL (50-130) 04/08/17 07:48 HDL Cholesterol 15 mg/dL (40-59) L 04/08/17 07:48 Cholesterol/HDL Ratio 9.06 % 04/08/17 07:48 HCG, Qual Negative (Negative) 04/05/17 20:14 HCG, Quant < 2 mIU/mL (0-4) 04/05/17 20:14 Urine Color [place] (Yellow) 04/06/17 04:04 Urine Turbidity Clear (Clear) 04/06/17 04:04 Urine pH 5.0 (5.0-7.0) 04/06/17 04:04 Ur Specific [place] 1.017 (1.003-1.030) 04/06/17 04:04 Urine Protein 100 mg/dl mg/dL (Negative) 04/06/17 04:04 Urine Glucose (UA) Neg mg/dL (Negative) 04/06/17 04:04 Urine Ketones Tr mg/dL (Negative) 04/06/17 04:04 Urine Blood Lg (Negative) 04/06/17 04:04 Urine Nitrite Neg (Negative) 04/06/17 04:04 Urine Bilirubin Neg (Negative) 04/06/17 04:04 Urine Urobilinogen < 2.0 mg/dL (<2.0) 04/06/17 04:04 Ur Leukocyte Esterase Tr (Negative) 04/06/17 04:04 Urine WBC (Auto) > 182.0 /HPF (0.0-6.0) H 04/06/17 04:04 Urine RBC (Auto) > 182.0 /HPF (0.0-6.0) 04/06/17 04:04 Urine WBC Clumps 3+ /HPF 04/06/17 04:04 Blood Type A POSITIVE 04/05/17 20:17 Antibody Screen Negative 04/05/17 20:17
[2017-04-08] MEDS ORDERED: REGLAN PO PRN (21:20)
[2017-04-08] MEDS: PERCOCET 5/325 PO PRN (22:33)
--- NOTE | 2017-04-08 23:51 | Ultrasound Report ---
FINAL REPORT PROCEDURE: Transabdominal and transvaginal pelvic ultrasound. TECHNIQUE: Real-time transabdominal sonography in multiple planes of the pelvis was performed. The pelvic structures, especially the ovaries were not optimally visualized. Transvaginal sonography was then performed to better evaluate the structures and/or abnormalities described below with image documentation. CPT 56460 and 25413 HISTORY: Vaginal bleeding and pelvic pain. COMPARISON: Pelvic ultrasound 04/06/2017. FINDINGS: The uterus measures 11.3 centimeters x 5.6 centimeters x 6.1 centimeters. There is still a hypoechoic area in the anterior portion of the uterus. This is located in the lower uterine segment. It measures approximately 2.9 centimeters x 2.3 centimeters. This could be the site of the recent Caesarean section incision. A uterine leiomyoma is also possible. The endometrial echo complex appears normal. Both ovaries appear normal in size. There is a cyst in the right ovary measuring 2.3 centimeters. There is no free fluid in the cul-de-sac. IMPRESSION: Right ovarian cyst. Persistent hypoechoic area in the anterior uterus similar to the previous study.
--- NOTE | 2017-04-09 08:07 | Ultrasound Report ---
FINAL REPORT EXAM: US TRANSVAGINAL HISTORY: bleeding and pain COMPARISONS: Transabdominal ultrasound of the same date, 04/06/2017 FINDINGS: Transvaginal grayscale and color Doppler ultrasound evaluation of the pelvis A heterogeneously hypoechoic fluid collection with increased through transmission measures 3.6 x 1.9 x 3.1 cm in at the anterior aspect of the lower uterine segment adjacent to patient's scar, which is not significantly changed from prior. Uterine myometrium is otherwise within normal limits. Mildly heterogeneous endometrium measures up to 10 millimeters in thickness. Uterus measures 11.3 x 5.6 x 6.1 cm. The ovaries are better demonstrated on transabdominal ultrasound of the same date. IMPRESSION: Heterogeneous fluid collection anterior to the lower uterine segment in the region of patient's scar is not significantly changed from prior exam.
[2017-04-09] MEDS: DILAUDID IV PRN ×2 (09:25→13:16)
[2017-04-09] MEDS: ASPIRIN PO SCH (10:31)
[2017-04-09] MEDS: cefTRIAXone 1 GM in NACL 0.9% 20 ML IV SCH (10:39)
[2017-04-09] MEDS ORDERED: NORCO 10/325 PO PRN (10:59)
[2017-04-09] MEDS ORDERED: PROVENTIL IH PRN (11:00)
--- NOTE | 2017-04-09 11:00 | Progress Note ---
Assessment and Plan Assessment and plan: Subinvolution of uterus VIDEO GAME MAKER input appreciated, "uterus is mildly enlarged and the endometrium is mildly thick which can be seen up to 8 weeks post C/section. Differential diagnosis includes uterine subinvolution or retained POC. Will give her methergine 0.2 mg IM x 1 dose, followed by 1 dose PO every 4 hours for 4 doses. "Rica 4d has completed methergin However vaginal bleeding, pelvic pain and back pain have worsened. We will repeat transvaginal ultrasound and pelvic ultrasound today Case discussed with VIDEO GAME MAKER physician Hematoma along incision site extract operator input appreciated "The hematoma is contained at the incision area and it is a common finding after C/section. No intervention is required at this time. May need to monitor its size with F/U sonogram in 1-2 weeks." Acute Ischemic CVA mri confirms CVA, carotid doppler and MRA negative Echocardiogram is negative for structural abnormality -added aspirin, lipid panel reviewed, add statin History Interval history: She still complaining of heavy vaginal bleeding along with pelvic pain and abdominal pain. She states that bleeding and pain are worse today Review of systems Constitutional: No fevers, no malaise, no joint pains CVS: No chest pain, no orthopnea, no dyspnea on exertion, no pedal edema GI: ,no diarrhea, no vomiting, no constipation Respiratory: No shortness of breath, no wheezing, no coughing Neurology: She had right-sided weakness previously was transient and now resolved completely. Hospitalist Physical - Physical exam Narrative exam: General.: Appears well, no distress, nontoxic HEENT: Moist mucous membranes, extraocular muscles intact, no lymphadenopathy Neck: supple Cardiac: S1-S2 heard Lungs: clear to auscultation bilaterally Abdomen: soft , pelvic tenderness, bowel sound positive Extremities: no edema clubbing or cyanosis Skin: no rash or lesions Neurologic: no gross focal deficits Psych: appropriate behavior, appropriate mood, corporative, judgment intact - Constitutional Vitals: Temp Pulse Resp BP Pulse Ox 98.8 F 73 15 98/56 100 04/09/17 07:36 04/09/17 07:36 04/09/17 07:36 04/09/17 07:36 04/09/17 07:36 Results - Labs CBC & Chem 7: 04/08/17 12:24 Labs: Laboratory Last Values WBC 6.8 K/mm3 (4.5-11.0) 04/07/17 14:53 RBC 3.69 M/mm3 (3.65-5.03) 04/07/17 14:53 Hgb 11.2 gm/dl (10.1-14.3) 04/08/17 12:24 Hct 34.3 % (30.3-42.9) 04/08/17 12:24 MCV 85 fl (79-97) 04/07/17 14:53 MCH 27 pg (28-32) L 04/07/17 14:53 MCHC 32 % (30-34) 04/07/17 14:53 RDW 14.8 % (13.2-15.2) 04/07/17 14:53 Plt Count 235 K/mm3 (140-440) 04/07/17 14:53 Lymph % (Auto) 28.9 % (13.4-35.0) 04/07/17 14:53 [place] % (Auto) 13.7 % (0.0-7.3) H 04/07/17 14:53 Eos % (Auto) 0.8 % (0.0-4.3) 04/07/17 14:53 Baso % (Auto) 0.7 % (0.0-1.8) 04/07/17 14:53 Lymph # 2.0 K/mm3 (1.2-5.4) 04/07/17 14:53 [place] # 0.9 K/mm3 (0.0-0.8) H 04/07/17 14:53 Eos # 0.1 K/mm3 (0.0-0.4) 04/07/17 14:53 Baso # 0.0 K/mm3 (0.0-0.1) 04/07/17 14:53 Seg Neutrophils % 55.9 % (40.0-70.0) 04/07/17 14:53 Seg Neutrophils # 3.8 K/mm3 (1.8-7.7) 04/07/17 14:53 Triglycerides 115 mg/dL (2-149) 04/08/17 07:48 Cholesterol 136 mg/dL (50-199) 04/08/17 07:48 LDL Cholesterol Direct 98 mg/dL (50-130) 04/08/17 07:48 HDL Cholesterol 15 mg/dL (40-59) L 04/08/17 07:48 Cholesterol/HDL Ratio 9.06 % 04/08/17 07:48 HCG, Qual Negative (Negative) 04/05/17 20:14 HCG, Quant < 2 mIU/mL (0-4) 04/05/17 20:14 Urine Color [place] (Yellow) 04/06/17 04:04 Urine Turbidity Clear (Clear) 04/06/17 04:04 Urine pH 5.0 (5.0-7.0) 04/06/17 04:04 Ur Specific [place] 1.017 (1.003-1.030) 04/06/17 04:04 Urine Protein 100 mg/dl mg/dL (Negative) 04/06/17 04:04 Urine Glucose (UA) Neg mg/dL (Negative) 04/06/17 04:04 Urine Ketones Tr mg/dL (Negative) 04/06/17 04:04 Urine Blood Lg (Negative) 04/06/17 04:04 Urine Nitrite Neg (Negative) 04/06/17 04:04 Urine Bilirubin Neg (Negative) 04/06/17 04:04 Urine Urobilinogen < 2.0 mg/dL (<2.0) 04/06/17 04:04 Ur Leukocyte Esterase Tr (Negative) 04/06/17 04:04 Urine WBC (Auto) > 182.0 /HPF (0.0-6.0) H 04/06/17 04:04 Urine RBC (Auto) > 182.0 /HPF (0.0-6.0) 04/06/17 04:04 Urine WBC Clumps 3+ /HPF 04/06/17 04:04 Blood Type A POSITIVE 04/05/17 20:17 Antibody Screen Negative 04/05/17 20:17
--- NOTE | 2017-04-09 18:24 | Discharge Summary ---
Providers - Providers Date of Admission: 04/06/17 16:26 Attending physician: HERNAN JARVIS MD 04/06/17 10:56 Consult to Physician [CONS] Urgent Consulting Provider: BABITA ROMAN Reason For Exam: vaginal bleeding Place consult to:: phone Notified:: y 04/06/17 16:32 Physical Therapy Evaluation and Treat [CONS] Routine Comment: Reason For Exam: RIGHT SIDED WEAKNESS 04/07/17 14:53 Occupational Therapy Evaluate and Treat [CONS] Routine Comment: Reason For Exam: Neuro deficits 04/07/17 14:54 Consult to Physician [CONS] Routine Consulting Provider: NEETU GATICA Reason For Exam: cva Place consult to:: DR. GATICA Notified:: OFFICE Phone number called:: [phone] Was contact made?: Yes If yes, spoke with:: EVAN Time called:: 15:40 Primary care physician: METROLOGY MANAGER Hospitalization Condition: Fair Hospital course: 21-year-old woman who had delivered her child by section 8 weeks prior to presentation. She presented to the hospital it's heavy vaginal bleeding. She was seen by gynecology. She was diagnosed with subacute involution of the uterus was adherent clots. She was treated with methergin, after which the bleeding subsided. She clinically improved and he did not recommend any further treatments for the hematoma along the incision site. She also complained of transient focal weakness, she went on to have MRI of her brain which confirmed acute CVA. Her medications are therefore optimized for secondary prevention of stroke. She was discharged home in improved condition Discharge diagnoses Subinvolution of uterus Hematoma along incision site from section Acute Ischemic CVA Disposition: DC-01 TO HOME OR SELFCARE Time spent for discharge: 33 minutes Core Measure Documentation - Palliative Care Palliative Care/ Comfort Measures: Not Applicable - Core Measures Any of the following diagnoses?: stroke - Stroke Discharge Requirements Statin for LDL = or >70 mg/dl on DC: Yes Anticoag for atrial fib/atrial flutter: Not Applicable Antithrombotic for ischemic stroke: Yes Exam - Constitutional Vitals: Temp Pulse Resp BP Pulse Ox 97.5 F L 72 18 113/73 100 04/09/17 15:56 04/09/17 15:56 04/09/17 15:56 04/09/17 15:56 04/09/17 15:56 General appearance: Present: no acute distress, well-nourished - EENT Eyes: Present: PERRL ENT: hearing intact, clear oral mucosa - Neck Neck: Present: supple, normal ROM - Respiratory Respiratory effort: normal Respiratory: bilateral: CTA - Cardiovascular Heart Sounds: Present: S1 & S2. Absent: rub, click - Extremities Extremities: pulses symmetrical, No edema Peripheral Pulses: within normal limits - Abdominal General gastrointestinal: Present: soft, non-tender, non-distended, normal bowel sounds Female genitourinary: Present: normal - Integumentary Integumentary: Present: clear, warm, dry - Musculoskeletal Musculoskeletal: gait normal, strength equal bilaterally - Psychiatric Psychiatric: appropriate mood/affect, intact judgment & insight - Neurologic Neurologic: CNII-XII intact, moves all extremities Plan Follow up with: BABITA ROMAN MD [Staff Physician] - 7 Days PRIMARY CARE, [Primary Care Provider] - 3-5 Days Prescriptions: Pravastatin [Pravachol] 20 mg PO QHS #30 tablet Aspirin EC [Aspirin Enteric Coated TAB] 81 mg PO QDAY #30 tablet. HYDROcodone/APAP 10-325 [[place] 10-325 mg TAB] 1 each PO Q4H PRN #30 tablet PRN Reason: Pain, Moderate (4-6)
[2017-04-09] MEDS: PERCOCET 5/325 PO PRN (18:54)
[2017-04-09] MEDS ORDERED: PRAVACHOL PO SCH (22:00)
[2017-04-10 08:07] VITALS: BP 94/61
[2017-04-10] MEDS: ASPIRIN PO SCH (10:10)
[2017-04-10] MEDS: cefTRIAXone 1 GM in NACL 0.9% 20 ML IV SCH (11:52)
--- NOTE | 2017-04-14 08:03 | Vascular Lab Report ---
CAROTID DUPLEX STUDY: RIGHT PSVEDV CCA PROX:[id number] CCA DIST:[id number] ICA PROX:34194 ICA MID:25843 ICA DIST:[id number] ECA: [id number] VERT: 66 18 LEFT PSVEDV CCA PROX:[id number] CCA DIST:14081 ICA PROX:96257 ICA MID:21413 ICA DIST:20582 ECA: [id number] VERT: 89 22 REASON FOR EXAM: Right sided weakness. COMMENTS ON THE RIGHT: Doppler frequency analysis is consistent with 1 to 15 percent diameter reduction of the internal carotid artery. No plaque is seen. The common carotid artery is patent. The external carotid artery is patent. The vertebral artery has antegrade flow. COMMENTS ON THE LEFT: Doppler frequency analysis is consistent with 1 to 15 percent diameter reduction of the internal carotid artery. No plaque is seen. The common carotid artery is patent. The external carotid artery is patent. The vertebral artery has antegrade flow. IMPRESSION: Normal carotid artery study.
--- NOTE | 2017-04-26 12:14 | Query-Infection ---
Dear Jaye Date:___04/26/17 Manager [employer]/CDS:____Monse / [place] Phone#:__[phone] Exercise your independent professional judgment when responding to this query. Questions asked do not imply a particular answer is desired or expected. We greatly appreciate your clarification on this issue. Clinical Documentation States: 21 year old female was admitted on 04/06/17 The ED documentation (Dr. Yo) states " - Differential Diagnosis retained products of conception, CVA, DVT, sciatica, UTI Clinical Impression: UTI (urinary tract infection) " The discharge summary (Dr. Cee) states " Hospital course: Subinvolution of uterus ELEMENTARY MATH TUTOR input appreciated, "uterus is mildly enlarged and the endometrium is mildly thick which can be seen up to 8 weeks post C/section. Differential diagnosis includes uterine subinvolution or retained POC. " WBC: 13 Pulse rate: 130 Respiratory rate: 35 Medications : IV ceftriaxone Clinical findings show: (please check applicable parameters) Infection, known /suspected, with some of the following indicators; Specify the infection: 3 General parameters [ ] Fever (core temp >38.30C or 100.40F) [ ] Hypothermia (core temp <36C) [x ] Heart rate >90 bpm [ x] Tachypnea: >20 bpm or pCO2 < 32 mmHg [ ] Altered mental status [ ] Significant edema / +ve fluid balance (>20 ml/kg 24 h) [ ] Hyperglycemia (Bl. glucose >110 mg/dl) w/o diabetes Inflammatory parameters [x ] Leukocytosis (white blood cell count >12,000/l) [ ] Leukopenia (white blood cell count <4,000/l) [ ] Bandemia (immature WBC > 10%) [ ] Leucocyte Left Shift [ ] Plasma procalcitonin>2 SD above the normal value Hemodynamic and tissue perfusion parameters [ ] Arterial hypotension(SBP <90 mmHg, MAP <70 mmHg,or a SBP drop >40 mmHg in adults) [ ] Hyperlactatemia (>3 mmol/l) [ ] Anion Gap (> 11mEG/l) [ ] Decreased capillary refill or mottling Organ dysfunction parameters [ ] Arterial hypoxemia (PaO2/FIO2 <300) [ ] Creatinine increase =0.5 mg/dl [ ] Acute oliguria (urine output <0.5 ml | kg |h or 45 mM/l for at least 2 hrs) [ ] Coagulation abnormalities (INR >1.5 or activated partial thromboplastin time >60 s) [ ] Ileus (absent veronica wel sounds) [ ] Thrombocytopenia (platelet count <100,000/l) [ ] Hyperbilirubinemia (plasma total bilirubin >4 mg/dl) According to the clinical indications above, can Bacteremia be further specified? If so, please indicate below and in your Progress Notes and/ or Discharge Summary. Indicate if the condition was present on admission. PHYSICIAN RESPONSE: [x ] Sepsis [ ] Severe Sepsis [ ] Septic Shock [ ] Septicemia [ ] Sepsis now resolved [ ] SIRS due to non-infectious cause with organ dysfunction [ ] SIRS due to non-infectious cause without organ dysfunction [ ] Other: [ ] Comment/Explanation: Present on Admission: [ x] Yes (Y) [ ] Clinically undeterminable (W) [ ] No (N) [ ] Ruled Out Please also document response in your Progress Notes and/or Discharge Summary and indicate if the condition was present on admission Notes: SIRS/ SIRS WITH ORGAN DYSFUNCTION Systemic inflammatory response syndrome (SIRS) generally refers to the systemic response to trauma/jackson or other insult such as Acute Myocardial Infarction, Acute Pancreatitis, and Major Surgery with symptoms including fever, tachycardia , tachypnea, and leukocytosis (1). BACTEREMIA Presence of viable bacteria in the circulating blood (2). This term is reserved for patients that do not manifest above SIRS response. SEPTICEMIA Generally refers to a systemic disease associated with the presence of pathological microorganisms or toxins in the blood, which can include bacteria, viruses, fungi or other organisms (1). SEPSIS Generally refers to SIRS due infection (1). SEVERE SEPSIS Generally refers to sepsis associated with acute organ dysfunction (1). SEPTIC SHOCK Generally refers to circulatory failure associated with severe sepsis (2), and defined as hypotension or hypoperfusion despite adequate fluid resuscitation (1 hour) (3). REFERENCES: 1. [employer]/Society of Critical Care Medicine Consensus Conference. Definitions for sepsis and organ failure and guidelines for the use of innovative therapies in sepsis. Critical Care Med 1992;20:864 - 74. 2. Antony y MM, Vivien MP, Ton NE, Simon E, Chan D, Eliot D, Sotero J, Joy SM , Ac JL, Dillan G; International Sepsis Definitions Conference. 2000 SCCM/ESICM/ACCP/ATS/SIS International Sepsis Definitions Conference. Intensive Care Med. 2002 Apr;29(4):530-8. Epub 2002Aug 03. Review. PubMed PMID:[id number] 3. ICD-9-CM Official Guidelines for Coding and Reporting 4. Medscape Drugs, Diseases and Procedures references 5. [employer] Textbook of Internal Medicine. 18th Edition MTDD
== END 2017-04-10 13:00 | disposition home or self-care (01) | DRG 871 ==
LOC: ED 19:53 → 3A 04-06 16:26
PROVIDERS: ADMIT Internal Medicine; ATTEND Internal Medicine
PROC: 3E0234Z Introduction of Serum, Toxoid and Vaccine into Muscle, Percutaneous Approach (ICD-10-PCS; principal; 2017-04-08)
DX: A41.9 Sepsis, unspecified organism (principal); I63.9 Cerebral infarction, unspecified; L76.32 Postprocedural hematoma of skin and subcutaneous tissue following other procedure; N39.0 Urinary tract infection, site not specified; N85.3 Subinvolution of uterus; D64.9 Anemia, unspecified; Y83.8 Other surgical procedures as the cause of abnormal reaction of the patient, or of later complication, without mention of misadventure at the time of the procedure; Z23 Encounter for immunization; Y92.89 Other specified places as the place of occurrence of the external cause
CPT/HCPCS: 36415; 70450; 70547; 70551; 76830; 76856; 80061; 81001; 84702; 84703; 85014; 85018; 85025; 86850; 86900; 86901; 90686; 93005; 93010; 93306; 93880; 96372; 96374; 96375; 96376; A9270-GY; J0696; J0780; J1170; J2210; J2270; J2765; J7030

== ENCOUNTER 2019-10-25 14:16 | Outpatient (CLI) | payer MEDICAID ==
[2019-10-25 14:45] VITALS: BP 112/57
[2019-10-25] MEDS ORDERED: LACTATED RINGERS 1,000 ML IV SCH (15:00)
[2019-10-25 15:13] LABS: Bacteria,Urine 1+ /HPF (Negative); Bilirubin,Urine NEG (Negative); Blood,Urine NEG (Negative); Color,Urine Yellow (Yellow); Mucus,Urine 2+ /HPF; Protein,Urine <15 mg/dL mg/dL (Negative); Urobilinogen,Urine < 2.0 mg/dL (<2.0)
== END 2019-10-25 17:16 | disposition home or self-care (01) ==
LOC: APU 14:16 → TRG 14:16
PROVIDERS: ATTEND Obstetrics & Gynecology
DX: O23.33 Infections of other parts of urinary tract in pregnancy, third trimester (principal); R39.15 Urgency of urination; Z3A.36 36 weeks gestation of pregnancy
CPT/HCPCS: 59025; 81001